=== PATIENT | male | born 1960 | race African-American/Black ===

== ENCOUNTER 2018-02-18 20:01 | Emergency (ER) | payer MEDICAID | END 2018-02-19 00:36 | disposition left against medical advice (07) | LOC: ER 20:46 | DX: Z53.21 Procedure and treatment not carried out due to patient leaving prior to being seen by health care provider (principal) ==

== ENCOUNTER 2018-02-19 23:49 | Emergency (ER) | payer MEDICAID ==
[~2018-02-19] VITALS: Ht 175.3 cm; Wt 89.0 kg
[2018-02-20 04:01] VITALS: BP 142/84
== END 2018-02-20 05:07 | disposition home or self-care (01) ==
LOC: ER 02-20 05:06
DX: R51 Headache (principal)
CPT/HCPCS: 99283

== ENCOUNTER 2019-10-11 21:36 | Emergency (ER) | payer MEDICAID ==
[~2019-10-11] VITALS: Ht 175.3 cm; Wt 91.0 kg
[2019-10-12] MEDS ORDERED: ACETAMINOPHEN WITH CODEINE 300/30MG TABLET PO STA (00:11)
[2019-10-12 00:36] LABS: BASOPHILS % 0.1 % (0.0-2.0); EOSINOPHILS % 1.2 % (0.0-5.0); HEMATOCRIT. 40.6 % (42.0-52.0); HEMOGLOBIN. 14.2 g/dL (14.0-18.0); LYMPHOCYTES % 12.9 % (20.0-50.0); MEAN CORPUSCULAR HEMOGLOBIN 29.9 pg (28.0-32.0); MEAN CORPUSCULAR VOLUME 85.7 fL (80.0-94.0); MEAN PLATELET VOLUME 8.7 fl (7.4-10.4); MONOCYTES % 6.4 % (2.0-8.0); NEUTROPHILS % 79.4 % (40.0-76.0); PLATELET 175 x1000/uL (130-400); RED BLOOD CELL COUNT 4.74 mill/uL (4.7-6.1); RED CELL DISTRIBUTION WIDTH 12.9 % (11.6-14.6)
[2019-10-12 00:42] LABS: PROTHROMBIN TIME 10.7 sec (9.6-11.0)
[2019-10-12 00:44] LABS: CHLORIDE 106 mEq/L (98-107)
[2019-10-12 02:00] VITALS: BP 129/79
== END 2019-10-12 02:15 | disposition home or self-care (01) ==
LOC: ER 21:36
DX: R10.33 Periumbilical pain (principal); I10 Essential (primary) hypertension
CPT/HCPCS: 36415; 74176; 80053; 85025; 99284